=== PATIENT | female | born 2000 | race Caucasian/White ===

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

== ENCOUNTER 2023-11-02 14:29 | Emergency (ER) | payer BC ==
[2023-11-02 14:55] VITALS: BP 110/68; PULSE 86; RESP 16; TEMP 99; BMI 22.0
== END 2023-11-02 16:23 | disposition home or self-care (01) ==
LOC: FER 14:29
PROC: 0Y963ZZ Drainage of Left Inguinal Region, Percutaneous Approach (ICD-10-PCS; principal; 2023-11-02)
DX: L02.214 Cutaneous abscess of groin (principal)
CPT/HCPCS: 87070; 87076; 87205; 99283-25